=== PATIENT | female | born 2000 | race Two or more races ===

== ENCOUNTER 2021-03-19 11:35 | Observation (INO) | payer MEDICAID ==
[~2021-03-19] VITALS: Ht 149.9 cm; Wt 83.9 kg
[2021-03-19 13:35] LABS: Urine Bacteria FEW /hpf (None Seen); Urine Blood Negative /uL (Negative); Urine Mucus FEW (None Seen); Urine Specific Gravity 1.026 (1.001-1.035); Urine WBC 19 /hpf (0 - 5)
== END 2021-03-19 13:11 | disposition home or self-care (01) ==
LOC: LDRP 11:35
PROVIDERS: ADMIT Obstetrics & Gynecology Obstetrics; ATTEND Obstetrics & Gynecology Obstetrics
DX: O12.13 Gestational proteinuria, third trimester (principal); Z3A.31 31 weeks gestation of pregnancy
CPT/HCPCS: 59025; 81001; 81002; 82948; 82962; G0378; G0379

== ENCOUNTER 2025-02-10 14:54 | Observation (INO) | payer SELFPAY ==
--- NOTE | 2025-02-10 16:48 | DVH ---
EXAM DESCRIPTION: US OB ULTRASOUND COMP GTR 14 WKS CLINICAL HISTORY: no pnc COMPARISON: None TECHNIQUE: Multiple real-time and static images of the gravid uterus were obtained utilizing color doppler vascularity when appropriate. FINDINGS: A single viable fetus is identified in a breech presentation. The placenta is in a anterior location. There is grade 2 placenta. The amniotic fluid volume is normal. The amniotic fluid index is 13.5 cm. The cervical length is 3.4 cm. BPD 7.3 cm - 29 weeks 2 days Head circumference 27.3 cm - 29 weeks 5 days Body circumference 24.8 cm - 29 weeks 0 days Femur length 5.3 cm - 28 weeks 1 days. The estimated body weight is 1289 g. The heart rate is 135 bpm and the cardiac rhythm is normal. No gross abnormalities identified at this time. The average sonographic gestational age is 29 weeks and 0 days. IMPRESSION: 1. Single viable intrauterine of 29 weeks and 0 days by sonographic criteria. Ultrasonically estimated date of confinement is 04/28/25. 2. Breech presentation. 3. No evidence of placenta previa or abruption.
[2025-02-10 16:59] LABS: Urine Protein, UAD TRACE (Negative)
[2025-02-10 17:20] LABS: Amphetamine Screen, Urine Neg (NEGATIVE); Barbiturate Scree,Urine Neg (NEGATIVE); Benzodiazephine Screen, Urine Neg (NEGATIVE); Cannabinoid Screen, Urine Neg (NEGATIVE); Cocaine Screen, Urine Neg (NEGATIVE); Opiate Scree,Urine Neg (NEGATIVE); Phencyclidine Screen, Urine Neg (NEGATIVE)
--- NOTE | 2025-02-11 14:37 | DVHDS2 ---
Physician Discharge Progress N Final Diagnosis: chest pain,pelvic pain 29wks Operations or Procedures: Operations or Procedures nst reactive reviwed,sono Condition on Discharge: Good Disposition: Home Discharge Instructions: Diet: Regular Activity: No Restrictions, As Tolerated Medications: na Follow Up Care: Specialist: 2d Discharge Statement: "Patient was advised to return to the ER or call 911 if any headaches, dizziness, shortness of breath, chest pain, abdominal pain, bleeding, fevers, or worsening of medical condition. Patient was counseled about treatment plan, medications, possible side effects, patientverbalized understanding. All questions were answered to the best of my ability. This discharge took greater then 30 minutes in planning, reviewing documentation, counseling the patient, and discussing with other team members." Visit Coding OBGYN Date of Service: Feb 10, 2025 Billing Provider: LAKISHA MENA DO [employer]ANT Common Visit Codes: 71258-[id number] OBS CARE (HIGH) [employer] CONSULTANT Procedure Codes: 11993-50- NON-STRESS TEST LAKISHA MENA DO Feb 11, 2025 14:37
--- NOTE | 2025-02-13 09:12 | ECG ---
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
== END 2025-02-10 16:45 | disposition home or self-care (01) ==
LOC: UNDOADMOB 14:54 → LDRP 14:54 → UNDODISOB 16:45
PROVIDERS: ADMIT Obstetrics & Gynecology; ATTEND Obstetrics & Gynecology
DX: O26.893 Other specified pregnancy related conditions, third trimester (principal); R10.20 Pelvic and perineal pain unspecified side; R07.89 Other chest pain; Z3A.29 29 weeks gestation of pregnancy; Z98.890 Other specified postprocedural states; Z79.899 Other long term (current) drug therapy
CPT/HCPCS: 59025; 76805; 80307; 81001; 81002; 94760; G0378